=== PATIENT | female | born 1975 | race Caucasian/White ===

== ENCOUNTER 2020-08-25 07:08 | Observation (INO) ==
--- NOTE | 2020-08-16 15:51 | PAT Medication Instructions ---
Medication Instructions Date of Service August 16, 2020 Home Medications hydrochlorothiazide 25 mg PO QAM lisinopril 40 mg PO QAM metformin 1,000 mg PO BIDM DO NOT take the morning of surgery hydrochlorothiazide 25 mg PO QAM lisinopril 40 mg PO QAM metformin 1,000 mg PO BIDM Take evening before surgery metformin 1,000 mg PO BIDM Other Notes If you have any questions please call us at [phone] or [phone] or [phone] or [phone]
--- NOTE | 2020-08-18 08:16 | Anesthesiology Consultation ---
Date of Service August 18, 2020 Assessment & Plan (1) Encounter for pre-operative examination: - Per assessment on 08/18: Travel screen negative. No known COVID-19 positive contacts or current COVID-19 related symptoms. Surgeon arranging preop COVID testing (scheduled 08/21; S). Awaiting results. - Check BSG, AM DOS Chart Review Chart Review: Acceptable Risk for Surgery and Patient seen in Pre Admission Testing Teaching & Discussion Pre-Anesthesia Teaching/Discussion Notes: Instructed NPO after midnight before surgery,except medications with 15 cc of water. Medication instructions provided according to the PAT guidelines. History Surgery Operation Date: 08/25/20 12:55 Proposed Procedures p Total Laparoscopic Hysterectomy, Bilateral Salpingectomy, Cystoscopy, Possible Laparotomy - Remy Bee MD Operation Date: 08/25/20 12:55 Proposed Procedures p Total Laparoscopic Hysterectomy, Bilateral Salpingectomy, Cystoscopy, Possible Laparotomy - Remy Bee MD Height/Weight Height: 5 ft 9 in Weight: 108.5 kg Allergies Allergy/AdvReac Type Severity Reaction Status Date / Time sulfamethoxazole Allergy Intermediate Hives and Verified 08/01/20 14:17 [From Bactrim] itchiness trimethoprim [From Bactrim] Allergy Intermediate Hives and Verified 08/01/20 14:17 itchiness adhesive Allergy Unknown EKG Verified 08/18/20 08:34 patches > hives Medications Home Medications Medication Instructions Recorded Confirmed Last Taken hydrochlorothiazide 25 mg PO QAM 07/06/20 08/01/20 07/06/20 lisinopril 40 mg PO QAM 07/06/20 08/01/20 07/06/20 metformin 1,000 mg PO BIDM 07/06/20 08/01/20 07/06/20 AM DOSE Past Medical History Medical History Diabetes mellitus, type 2 NIDDM Hyperlipidemia borderline, under surveillance > no meds Hypertension Migraine hx Temporomandibular joint disorder + clicking, no locking Exercise / Class Metabolic Activity II 4-5 Yardwork/Stairs/Walk up hill (one flight of stairs (no chest pain, no SOB)) Past Family History Family History Mother Family history of diabetes mellitus Past Surgical History Surgical History History of section x2 History of cholecystectomy History of endometrial ablation Past Anesthesia History No Hx of Anesthesia Complications (except PONV x1 episode) and No Family Hx of Anesthesia Complications History of PONV No Hx of Motion Sickness and History of PONV (x1 episode (cholecystectomy)) Social History Smoking Status: Current every day smoker Smoking cigarettes per day: 10 cigs/day since age 18 Do You Dip or Chew Tobacco: No Hx Alcohol Use: Yes Alcohol type: hard liquor alcohol intake frequency: holidays/special occasions only Hx Substance Use: No Review of Systems + snoring. No definitive apnea events. Patient denies chest pain, shortness of breath, dyspnea on exertion, fever, chills, cough, wheezing, palpitations. Physical Exam Vital Signs VITALS BP 105/73 P 85 TEMP 98.4 SP02 96%RA RESP 16 PHYSICAL Full neck and c-spine range of motion. Full TMJ range of motion. TMD 3.5 finger breaths Mallampati Score 3 Dentition: missing molars, upper left side implant Lungs: clear throughout to auscultation Cardiac: regular rate and rhythm, no murmurs noted Spine: normal Carotid arteries: negative bruit Extremities: no edema Testing Laboratory Results 08/18/20 08:32 08/18/20 08:30 Blood Type O Negative 08/18/20 08:32 Antibody Screen NEGATIVE 08/18/20 08:32 Electrocardiogram Date: 07/06/20 Findings: + NSR @ (88) Chest X-Ray Date: 07/06/20 Findings: + NAD
[2020-08-18 11:20] LABS: Basophils # (auto) 0.07 K/uL (0-0.2); Basophils % (auto) 0.9 %; Eosinophils # (auto) 0.43 K/uL (0-0.5); Eosinophils % (auto) 5.4 %; Hematocrit (blood only) 38.8 % (37-47); Hemoglobin 12.7 g/dL (12.0-16.0); Immature Granulocytes # (auto) 0.01 K/uL (0.00-0.02); Immature Granulocytes % (auto) 0.1 %; Lymphocytes % (auto) 21.5 %; Mean Corpuscular Hemoglobin 27.1 pg (25-34); Mean Corpuscular Hgb Conc 32.7 g/dL (32-36); Mean Corpuscular Volume 82.9 fL (80-100); Mean Platelet Volume 10.9 fL (7.4-10.4); Monocytes # (auto) 0.46 K/uL (0.11-0.59); Monocytes % (auto) 5.8 %; Neutrophils # (auto) 5.22 K/uL (1.4-6.5); Neutrophils % (auto) 66.3 %; Platelet Count 301 K/uL (130-400); RDW Coefficient of Variation 13.8 % (11.5-14.5); RDW Standard Deviation 41.5 fL (36.4-46.3); Red Blood Count 4.68 M/uL (4.2-5.4); White Blood Count 7.89 K/uL (4.8-10.8)
[2020-08-18 11:38] LABS: BUN Creatinine Ratio 10.2 (10-20); Calcium 9.2 mg/dl (8.5-10.1); Creatinine Clr Calc Pharmacy 116.3 ml/min; Est GFR (African American) 102.4; Est GFR (Non-African American) 88.3; Potassium 3.7 mmol/L (3.5-5.1)
[2020-08-18 11:41] LABS: Albumin Globulin Ratio 1.1 (0.9-2); Bilirubin,Total 0.5 mg/dl (0.2-1); Globulin 3.6 gm/dl (2.5-4.0); Total Protein 7.6 gm/dl (6.4-8.2)
[~2020-08-25 07:08] MED LIST: LACTATED RINGER'S 1,000 ML IV SCH; LR 15ML/HR IV SCH; ceFAZolin 2000MG 2,000 MG/15 ML SYR IV SCH
[2020-08-25] MEDS ORDERED: MIDAZOLAM HCL 1 MG/ML 2ML VIAL ONE (08:37)
[2020-08-25] MEDS ORDERED: fentaNYL citrate 100 MCG/2 ML VIAL ONE ×3 (08:37→14:01)
[2020-08-25] MEDS ORDERED: LIDOCAINE HCL 2% 2 ML VIAL/AMP(20MG/ML) INFIL ONE (08:38)
[2020-08-25] MEDS ORDERED: PROPOFOL IV EMULSION 10 MG/ML 20 ML VIAL IV ONE (08:38)
[2020-08-25] MEDS ORDERED: DEXAMETHASONE SOD INJ 4 MG/ML VIAL ONE ×2 (08:38→13:29)
[2020-08-25] MEDS ORDERED: ONDANSETRON INJ 2 MG/ML 2 ML VIAL ONE (08:38)
[2020-08-25] MEDS ORDERED: ePHEDrine sulfate 50 MG/ML AMP IV PRN (08:58)
[2020-08-25] MEDS ORDERED: PROMETHAZINE HCL 12.5 MG in SODIUM CHLORIDE 0.9% 50 ML IV PRN (08:58)
[2020-08-25] MEDS ORDERED: ATROPINE SULFATE 0.1 MG/ML 10ML SYR IV PRN (08:58)
[2020-08-25] MEDS ORDERED: HYDROmorphone INJ 2 MG/ML SYR/VIAL IV PRN (08:58)
[2020-08-25] MEDS ORDERED: ONDANSETRON INJ 2 MG/ML 2 ML VIAL IV PRN ×2 (08:58→14:53)
[2020-08-25] MEDS ORDERED: BUPIVACAINE 0.5 % 5 MG/1 ML MPF 30ML VIAL ONE (11:14)
--- NOTE | 2020-08-25 11:14 | History & Physical Bridge Note ---
Date of Service August 25, 2020 History & Physical Bridge Note I have examined the patient, reviewed the History & Physical and in the interval since the performance of the History & Physical I have noted the following changes of clinical significance: no changes noted
[2020-08-25] MEDS ORDERED: ROCURONIUM BROMIDE 10 MG/ML 5 ML VIAL IV ONE ×2 (13:29→13:57)
[2020-08-25] MEDS ORDERED: GLYCOPYRROLATE 0.2 MG/ML VIAL ONE (14:00)
[2020-08-25] MEDS ORDERED: NEOSTIGMINE METHYLSULFATE 5 MG/5 ML SYR ONE (14:00)
[2020-08-25] MEDS ORDERED: KETOROLAC 30 MG/ML VIAL ONE (14:00)
[2020-08-25] MEDS ORDERED: TISSEEL FIBRIN SEALANT 10ML TOP ONE (14:34)
[2020-08-25] MEDS ORDERED: MAGNESIUM HYDROXIDE SUSP 30 ML UDC PO PRN (14:53)
[2020-08-25] MEDS ORDERED: oxyCODONE/ACETAMINOPHEN 5mg/325mg TAB PO PRN (14:53)
[2020-08-25] MEDS ORDERED: ACETAMINOPHEN 325 MG TAB PO PRN (14:53)
[2020-08-25] MEDS ORDERED: ZOLPIDEM TARTRATE 5 MG TAB PO PRN (14:53)
[2020-08-25] MEDS ORDERED: SIMETHICONE 80 MG CHEW PO PRN (14:53)
--- NOTE | 2020-08-25 14:53 | Post Operative Brief Note ---
Immediate Post Op Note v1 Date of Surgery August 25, 2020 Pre & Post Diagnosis Operation Date: 08/25/20 08:40 Pre-Op Diagnosis: Menorrahia, Failed Endometrial Ablation Post-Op Diagnosis: Menorrahia, Failed Endometrial Ablation Operation Date: 08/25/20 12:55 <No data on this case meets the specified criteria> I identified the patient and participated in the time-out.: Yes Procedure Operation Date: 08/25/20 08:40 Actual Procedures p Total Laparoscopic Hysterectomy, Bilateral Salpingectomy, Cystoscopy(Not Applicable) - Remy Bee MD Operation Date: 08/25/20 12:55 <No data on this case meets the specified criteria> Surgeon Remy Bee MD Bass Viol Repairer aime rome Estimated Blood Loss 20 Findings Consistent with Post-Op Diagnosis
[2020-08-25] MEDS ORDERED: LACTATED RINGER'S 1,000 ML IV SCH (15:00)
[2020-08-25] MEDS: fentaNYL citrate 100 MCG/2 ML VIAL IV PRN ×2 (15:15→15:16)
--- NOTE | 2020-08-25 15:32 | Anesthesiology Progress Note ---
Date of Service August 25, 2020 Anesthesia Post Procedure Vital Signs Vital Signs: Temp Pulse Pulse Resp BP BP Pulse Ox 08/25/20 15:25 80 16 138/82 96 08/25/20 15:15 80 16 143/84 H 96 08/25/20 15:05 86 16 137/90 96 08/25/20 14:58 36.1 C L 98 H 16 100/86 94 08/25/20 07:31 36.8 C 86 20 144/85 H 98 Transfer of Care Handoff Completed per policy Notes Mental Status: alert / awake / arousable Patient Amnestic to Procedure: Yes Nausea / Vomiting: adequately controlled Pain: adequately controlled Airway Patency, RR, SpO2: stable & adequate BP & HR: stable & adequate Hydration State: stable & adequate Anesthetic Complications: no major complications apparent and Pt Satisfied with anesthetic care
[2020-08-25] MEDS: IBUPROFEN 600 MG TAB PO PRN ×2 (17:21→23:27)
[2020-08-25 20:07] LABS: Hematocrit (blood only) 36.6 % (37-47)
[2020-08-25] MEDS ORDERED: metFORMIN HCL 500 MG TAB PO ONE (20:15)
[2020-08-25] MEDS: DOCUSATE SODIUM 100 MG CAP PO SCH (20:20)
[2020-08-25] MEDS: oxyCODONE/ACETAMINOPHEN 5mg/325mg TAB PO PRN (20:21)
[2020-08-25] MEDS ORDERED: COUGH DROP (SUGAR FREE) LOZ 24 LOZ/1 BOX BUCCAL ONE (20:52)
[2020-08-26] MEDS: oxyCODONE/ACETAMINOPHEN 5mg/325mg TAB PO PRN ×3 (00:39→08:25)
--- NOTE | 2020-08-26 03:49 | Operative Report (OR) ---
DATE OF OPERATION: 08/25/2020 INDICATION FOR SURGERY: This is 44-year-old with failed endometrial ablation and menorrhagia. PREOPERATIVE DIAGNOSES: 1. Menorrhagia. 2. Failed endometrial ablation. POSTOPERATIVE DIAGNOSES: 1. Menorrhagia. 2. Failed endometrial ablation. SURGEON: Remy Bee MD LOBBY CONCIERGE: Doreen Helm. ATTESTATION FOR LOBBY CONCIERGE: Gas Scrubber Operator was necessary for retraction and to hold instruments to provide better visualization in order to be able to perform safe surgery. ESTIMATED BLOOD LOSS: 20 mL. INTRAVENOUS FLUIDS: 800 mL. URINE OUTPUT: 200 mL clear urine at end of the procedure. PROCEDURES: 1. Total laparoscopic hysterectomy. 2. Bilateral salpingectomy. 3. Cystoscopy. COMPLICATIONS: None. DRAINS: None. PATHOLOGY: Uterus and cervix, left and right fallopian tubes. DISPOSITION: Stable to recovery room. FINDINGS: Normal female escutcheon. No lesions on the vagina or cervix. Abdominal findings: Uterus about 8-10 weeks size. Both left and right fallopian tube appeared grossly normal. The adnexa was normal. The ureters were identified. The appendix appeared grossly normal as well. The patient had prior section and had some dense adhesions of the bladder to the uterus. DESCRIPTION OF PROCEDURE: The patient was taken to the operating room where she was prepped and draped in normal sterile fashion in dorsal lithotomy position. Rodgers catheter was placed in the bladder. Uterine manipulator was placed on the cervix after the uterus was sounded. Attention was paid to the abdominal part of the procedure where a supraumbilical incision was made with a scalpel and carried down to the fascia with a scalpel. Fascia was grabbed with 2 Kochers. A Veress needle was introduced into the abdomen at a 45-degree angle while tenting up the abdomen. Intraabdominal placement was confirmed with water filled syringe. Once that was confirmed, the abdomen was insufflated with 3 liters of CO2 gas. A nonbladed guided trocar was placed into the abdomen, it was a 5-mm 30-degree scope. Once inside the abdomen, the findings were as dictated above. Three additional ports were placed under direct visualization, two 10 mm ports on the left and a 5 mm port on the right. The abdominal exam was performed. There were some dense adhesions of the bladder from previous section, otherwise unremarkable. The uterus, left and right fallopian tubes, bladder, ureters and uterosacrals, bowels, cecum, and appendix were examined and appeared grossly normal. LigaSure was passed through the left accessory port. Left fallopian tube was identified and grabbed 4 cm from the cornua of the uterus with the LigaSure and transected. This was followed by opening of the left anterior leaf of the broad ligament. The mid section of the left fallopian tube, uteroovarian and medial ovarian pedicles were transected as well. Same procedure was performed on the contralateral side on the right. The anterior broad ligament dissection was carried to the midsection of the vesicouterine peritoneum over the bladder using the Harmonic scalpel. Same procedure was carried out from the contralateral side. The posterior broad ligament peritoneum was carefully dissected also from both sides over the uterosacral arch in order to displace the ureters laterally. Using traction and countertraction, the [place] retractor and irrigation probe was used to further dissect the bladder off the lower segment of the uterus. Bladder pillars and pubovesical fascia was dissected as well. The Harmonic scalpel was used to obtain hemostasis when needed. Uterine manipulator was not palpable over the vaginal tissue. The right uterine pedicle was skeletonized and coagulated with the LigaSure. Good hemostasis was obtained. Same procedure was performed on the contralateral side. The cardinal ligaments were transected on both sides. Once hemostasis was obtained, colpotomy was performed using Harmonic scalpel from both sides. Uterus was removed through the vagina while still attached to the uterine manipulator. The bulb attached to the uterine manipulator was reinserted into the vagina to establish pneumoperitoneum. With the grasper, the remaining section of the left fallopian tube and ovary were positioned anteromedially and a salpingectomy performed with Harmonic scalpel. Same procedure was performed on the contralateral side. These were removed through the 10 mm port. The EndoStitch closure device was passed through the 10 mm port on the left using the [place] grasper for retraction. Colpotomy closure was performed. The uterosacral ligaments were incorporated in the closure of the uterus to decrease the risk of prolapse. ____ ties were used with the EndoStitch suture. Cystoscopy was performed with a 30-degree scope. The bladder appeared grossly normal. There were no sutures seen in the bladder. A bubble was seen superiorly after filling the bladder with saline. The patient had been given indigo carmine earlier. Both ureteral orifices were identified and blue urine was seen jetting out of both openings without difficulty. Scope was removed from the bladder. All abdominal incisions were closed, the 10 mm ports were closed using Jagdish-Juni ____ sterile dressing, the 5 mm skin incisions were closed with 4-0 Monocryl. All instruments were removed from the abdomen and the vagina and accounted for x2 including sponges, needles, and retractors. The patient was sent to recovery in stable condition. I attest to the content of the Intraoperative Record and any orders documented therein. Any exception s are noted below.
[2020-08-26 06:10] LABS: Basophils # (auto) 0.02 K/uL (0-0.2); Basophils % (auto) 0.1 %; Eosinophils # (auto) 0.08 K/uL (0-0.5); Eosinophils % (auto) 0.6 %; Hematocrit (blood only) 36.5 % (37-47); Hemoglobin 11.9 g/dL (12.0-16.0); Immature Granulocytes # (auto) 0.05 K/uL (0.00-0.02); Immature Granulocytes % (auto) 0.4 %; Lymphocytes # (auto) 2.08 K/uL (1.2-3.4); Lymphocytes % (auto) 14.7 %; Mean Corpuscular Hemoglobin 26.9 pg (25-34); Mean Corpuscular Hgb Conc 32.6 g/dL (32-36); Mean Corpuscular Volume 82.6 fL (80-100); Mean Platelet Volume 10.4 fL (7.4-10.4); Monocytes # (auto) 1.04 K/uL (0.11-0.59); Monocytes % (auto) 7.4 %; Neutrophils # (auto) 10.85 K/uL (1.4-6.5); Neutrophils % (auto) 76.8 %; Platelet Count 309 K/uL (130-400); RDW Coefficient of Variation 13.6 % (11.5-14.5); RDW Standard Deviation 41.5 fL (36.4-46.3); Red Blood Count 4.42 M/uL (4.2-5.4); White Blood Count 14.12 K/uL (4.8-10.8)
[2020-08-26 06:43] LABS: BUN Creatinine Ratio 13.6 (10-20); Calcium 8.8 mg/dl (8.5-10.1); Creatinine Clr Calc Pharmacy 98.2 ml/min; Est GFR (African American) 85.5; Est GFR (Non-African American) 73.8; Potassium 3.6 mmol/L (3.5-5.1)
[2020-08-26] MEDS ORDERED: metFORMIN HCL 500 MG TAB PO SCH (08:00)
[2020-08-26] MEDS: DOCUSATE SODIUM 100 MG CAP PO SCH (08:25)
[2020-08-26] MEDS: IBUPROFEN 600 MG TAB PO PRN (08:26)
--- NOTE | 2020-08-26 08:47 | Obstetrical Progress Note ---
Date of Service August 26, 2020 Assessment & Plan (1) S/P laparoscopic hysterectomy: Pt doing well No complaints d/c home with instructions Results & Data ([facility]) Vital Signs (Past 12 Hours) Vital Signs Temp Pulse Resp BP Pulse Ox 08/26/20 04:35 36.8 C 78 18 122/73 96 08/25/20 23:20 36.9 C 78 18 114/72 95
--- NOTE | 2020-08-26 09:37 | Discharge Summary (DS) ---
CHIEF COMPLAINT: This is a 44-year-old status post failed endometrial ablation for menorrhagia. The patient was admitted on 08/25/2020 and underwent total laparoscopic hysterectomy with bilateral salpingectomy and cystoscopy. Surgery was unremarkable. Details of surgery is in the operative note. Postop care was unremarkable as well and this morning, patient has been discharged home in stable condition. PAST MEDICAL HISTORY: 1. Diabetes mellitus type 2. 2. Hyperlipidemia. 3. Hypertension. 4. Migraines. 5. Temporomandibular joint disorder. PAST SURGICAL HISTORY: History of section, history of cholecystectomy and history of endometrial ablation. FAMILY HISTORY: Noncontributory. SOCIAL HISTORY: The patient denies tobacco, drug or alcohol use. FAMILY HISTORY: Noncontributory. ALLERGIES: THE PATIENT IS ALLERGIC TO BACTRIM. REVIEW OF SYSTEMS: Negative except as dictated in the HPI. PHYSICAL EXAMINATION: GENERAL: Well-developed, well-nourished white female in no acute distress. HEART: S1, S2, regular rhythm and rate. LUNGS: Clear to auscultation bilaterally. ABDOMEN: Nontender, nondistended. Incision was clean, dry and intact. EXTREMITIES: No cyanosis, clubbing or edema. VITAL SIGNS: This morning, blood pressure 127/80, pulse 76, respirations 18, temperature 36.7. LABORATORY DATA: This morning, WBC is 14.1, hemoglobin is 11.9, hematocrit is 36.5 and platelets are 309. Complete chemistry is unremarkable. CONDITION ON DISCHARGE: Stable. OPERATIONS: Total laparoscopic hysterectomy, bilateral salpingectomy and cystoscopy. DISCHARGE DIAGNOSIS: Postop. PLAN ON DISCHARGE: The patient is discharged home with instructions regarding diet, activity, followup appointment and medications.
== END 2020-08-26 10:10 | disposition home or self-care (01) ==
LOC: 4N 07:08 → ASU 07:08